=== PATIENT | male | born 1990 | race Caucasian/White ===

== ENCOUNTER 2024-12-25 10:41 | Emergency (ER) | payer OTHER, SELFPAY ==
[2024-12-25 10:45] VITALS: BP 144/90
--- NOTE | 2024-12-25 11:06 | ED.GENMED ---
History of Present Illness
General
Chief Complaint: Suicidal Ideation
Source: patient and police
Time Seen by Provider: 12/25/24 10:44
History of Present Illness
History of Present Illness:
34-year-old male with past medical history of ADHD, anxiety and depression presenting to the ER with police who are in the process of filing a 302 stating that they were contacted by patient's employer due to the patient making suicidal statements.
Patient reportedly told a coworker that he had thoughts about using a knife to kill himself or drive his car into a fixed object/treat. Patient is stating to me that these thoughts are general and not a specific plan that he wants to act on at this
time. Longstanding history of similar. Reportedly follows with Barbra Burger as an outpatient but has not gone to his appointment in at least a month and a half. No current physical complaints.
Past History
Past History
ED Past Medical History: Psychiatric
ED Past Surgical History: None
Patient has exhibited threatening behavior?: No
Social History
Tobacco: Vaping
Alcohol: Occasional
Drug: Marijuana
Personal: Single
Living: with family
Employment: Employed
Family History
Family History: Negative Early CAD
Review of Systems
Review of Systems
All Other Systems: ROS reviewed and negative except as documented in HPI and ROS
Phy Exam
Physical Exam
Physical Exam:
GENERAL: Alert , in no apparent distress
EYE: conjunctiva clear
Head: Normocephalic atraumatic
NECK: Supple,
ENT: mmm.
LUNGS: no acute respiratory distress
NEUROLOGICAL: Alert and oriented
SKIN: Warm and dry, skin intact.
MUSCULOSKELETAL: well perfused.
PSYCH: Normal and appropriate interaction.
Scores
Heart Failure Risk
Heart Failure Risk Score: Not Applicable
Heart Score for Chest Pain Patients
STEMI patient?: Not applicable
Withdrawal Assessment of Alcohol
Withdrawal Assessment Completed?: Not applicable
Course
Orders/Labs/Results
Orders:
Orders
12/25/24 10:54
Crisis Consult Urgent
Reason for Consult: SI
12/25/24 10:55
Crisis Consult Urgent
Reason for Consult: suicidal ideation
ED Special Safety Observation ONCE
Observation level: One to Two
12/25/24 12:02
Haloperidol Lactate [Haldol] 5 mg .ROUTE .STK-MED ONE
12/25/24 12:03
Midazolam HCl [Versed] 2 mg .ROUTE .STK-MED ONE
12/25/24 12:40
PSYCHIATRY CONSULT Urgent
Consulting Provider: Rivas Alonso
Was physician already notified: Yes
Vital Signs
Initial and Last Documented VS:
Initial Vital Signs
Temp Pulse Resp BP Pulse Ox
98.9 F 76 16 144/90 99
12/25/24 10:45 12/25/24 10:45 12/25/24 10:45 12/25/24 10:45 12/25/24 10:45
Last Documented Vital Signs
Temp Pulse Resp BP Pulse Ox
98.9 F 76 16 144/90 99
12/25/24 10:45 12/25/24 10:45 12/25/24 11:00 12/25/24 10:45 12/25/24 11:10
MDM/Problems Addressed
Differential Diagnosis Includes:
Suicidal ideation
Major depressive disorder
Bipolar disorder
MDM/Problems Addressed:
34-year-old male presenting to the ER for evaluation with police who are in the process of filing a 302. Patient currently calm and cooperative. Reportedly had threatened to fight police if anyone were to touch him or he needed to go inpatient.
Police staying in the ER in case of significant agitation and needing to be restrained. Crisis to evaluate the patient.
Chronic conditions affecting care: Psychiatric illness
Acute Exacerbation and/or Progression of Chronic Illness: Psychiatric illness
*Pulse Oximetry
SaO2: 99
Oxygen Mode of Delivery: Room air
Patient hypoxic: no
*Critical Care Note
Total Time (30-74mins, 75-104mins- exclusive of procedures): Not Applicable
Patient Management
Discussion with other providers: Travel Ticketing Reviewer
Escalation/DeEscalation of care consider admission/obs:
Psychiatry did not uphold 302 and will be helping arrange the patient for further outpatient follow up
ED Attending Note
-
Portions of this chart may have been created with voice recognition software.� Occasional wrong word or��sound alike� substitutions may have occurred due to the inherent limitations of voice recognition software.
Discharge Plan
Departure
Patient Disposition: Home (Routine Discharge)
Date of Disposition: 12/25/24
Time of Disposition: 13:26
Patient with high blood pressure during this ER visit?: Yes
Discharge Problem:
Depression
Instructions: Depression, Adult (DC)
Prescriptions:
No Action
No Current Medications
0
Referrals:
UNKNOWN - PT NOT,INTERVIEWE [Family Provider]
Interventions
Interventions:
*Risk Screen - Suicide Last Done: 12/25/24 10:45
*General Assessment Last Done: 12/25/24 10:45
*Neglect/Abuse Screening Last Done: 12/25/24 10:45
*ED- Fall Risk Assessment Last Done: 12/25/24 11:23
ED-Psychological Assessment Last Done: 12/25/24 11:23
Discharge Date and Time
Print Language: FIJIAN
--- NOTE | 2024-12-25 14:02 | CS.PSYCHR ---
Consult Summary - Psychiatry
-
pt seen for 302 assessment
34 yo man with long history of mental health problems dating to childhood, in active treatment at [facility], brought in by police for assessment after telling co-worker he thinks about . At co-worker's urging called [phone];
mentioned chronic thoughts of suicide along with some plans (cutting self, running car off road) so police called and brought him here. Very upset by this, wants to go home, had been hospitalized numerous times as an adolescent with bad experiences
and no help.
I reviewed many pages of documents in [employer], spoke to SAMY Banuelos who is treating him, awaiting call back from therapist (has not seen her since he has been unable to download new portal).
On interview pt is intially somewhat standoffish, cursing, had hit hand against TV enclosure. Says that being confined to a small room is the worst thing that could happen to him, does not want to be confined. Says that he has been thinking about
why go on? for lots of his life, not worse now. No signs of cognitive impairment, no signs of psychosis. Thoughtful, insightful
We talked about his treatment, which he has liked. Has not been able to use the portal, confused by instructions for downloading. I suspect this is part of the reason for his isolation and decline--pt agrees.
Radha Banuelos able to schedule phone session with him on January 02 at 220 pm.
No need for involuntary treatment.
== END 2024-12-25 14:08 | disposition home or self-care (01) ==
LOC: EMR 10:41
PROVIDERS: CONSULT PHYSICIAN Psychiatry & Neurology Psychiatry; EMERGENCY PHYSICIAN Emergency Medicine
DX: F32.A Depression, unspecified (principal); R45.851 Suicidal ideations; R03.0 Elevated blood-pressure reading, without diagnosis of hypertension; F41.9 Anxiety disorder, unspecified; F90.9 Attention-deficit hyperactivity disorder, unspecified type; F17.290 Nicotine dependence, other tobacco product, uncomplicated; Z91.199 Patient's noncompliance with other medical treatment and regimen due to unspecified reason
CPT/HCPCS: 99285